=== PATIENT | female | born 1960 ===

== ENCOUNTER 2025-06-11 15:45 | Emergency (ER) | payer OTHER ==
[~2025-06-11] VITALS: Ht 162.6 cm; Wt 66.2 kg
[2025-06-11] MEDS ORDERED: OCUFLOX511 RIGHTEAR (16:17)
[2025-06-11] MEDS ORDERED: PRED20 PO (16:17)
== END 2025-06-11 16:28 | disposition home or self-care (01) ==
LOC: ER 15:45
DX: G51.0 Bell's palsy (principal); H60.91 Unspecified otitis externa, right ear; Z88.5 Allergy status to narcotic agent
CPT/HCPCS: 99283